=== PATIENT | female | born 1945 | race Caucasian/White ===

== ENCOUNTER 2017-01-06 10:12 | Observation (INO) | payer MEDICARE, MEDICAID ==
[~2017-01-06] VITALS: Ht 154.9 cm; Wt 107.5 kg
[~2017-01-06 10:12] MED LIST: ASPI-628 PO; BENEDRYL PO; CALC-721 PO; CREST10T PO; FRSM80T PO; GABA600T2 PO; HYDR-3740 PO; INSU100I18 SUBQ; LEVO75TA4 PO; LORA0.5T PO; METH750T3 PO; METO5TAB5 PO; MONT10TA20 PO; MULT-36 PO; PANT40TA2 PO; POTA-62 PO; SPIR25TA3 PO; VENL75TA87 PO; WARF10TA PO
[2017-01-06 10:19] VITALS: BP 117/50; PULSE 62; RESP 18; O2SAT 90
--- NOTE | 2017-01-06 10:22 | ED.REPORT ---
HPI-Abd Pain F 40 and Over Date of Service Jan 06, 2017 ED Provider: Dr. Enrike Aparicio MD A 71 year old female with a known abdominal hernia and a history of DVT, atrial fibrillation on Coumadin, chronic unduly catheter, PE, CAD, COPD and ovarian cancer s/p resection presents to the ED via EMS with intractable abdominal pain that began yesterday. The pain is exacerbated by laying down and has becoming progressively worse since onset. She rates her current pain as a 10/10 and reports that the pain radiates to her right flank. Associated symptoms include hematuria, diarrhea, nausea and flatulence. She also experienced insomnia last night secondary to pain. Patient denies any similar previous pain. Patient was given 4 mg of Dilaudid and 6mg of Tylenol with no relief. She was recently treated with Levaquin for pneumonia approx. 1 week ago. Patient denies fever, chills, hematochezia or vomiting. Nursing Notes Stated Complaint: ABDOMINAL PAIN Chief Complaint: Female Abdominal Pain Nursing Notes Reviewed: Yes (Stkr.it not reconciled - on warfarin) Allergies: Coded Allergies: latex (Verified Allergy, Severe, Rash, 01/06/17) cefaclor (Verified Allergy, Unknown, UNKNOWN, 01/06/17) oxycodone HCl (Verified Allergy, Unknown, UNKNOWN, 01/06/17) paroxetine (Verified Allergy, Unknown, UNKNOWN, 01/06/17) tetracycline (Verified Allergy, Unknown, UNKNOWN, 01/06/17) Cephalosporins (Unverified Adverse Reaction, Severe, NAUSEA, 01/06/17) codeine (Verified Adverse Reaction, Severe, GI UPSET, 01/06/17) morphine (Verified Adverse Reaction, Severe, Respiratory depression, ) enoxaparin sodium (Verified Adverse Reaction, Unknown, UNKNOWN, 01/06/17) Scheduled Allopurinol (Allopurinol) 100 Mg Tablet 100 MG PO TID Ascorbate Calcium (Vitamin C) 500 Mg Tablet 1,000 MG PO DAILY Aspirin (Aspirin) 81 Mg Tablet 81 MG PO DAILY Atorvastatin (Lipitor) 40 Mg Tablet 40 MG PO HS Beclomethasone Dipropionate (Qvar) 8.7 Gm Aer.w.adap 1 PUFF INHALATION BID Calcium Carbonate (Calcium Carbonate) 200 Mg Tab.chew 200 MG PO BID Calcium Carbonate/Vitamin D3 (Calcium 600 + Vit D 400 Softgl) 1 Each Capsule 1 EACH PO BID Cetirizine (Cetirizine) 5 Mg Tablet 10 MG PO DAILY Docusate Sodium (Docusate Sodium) 250 Mg Capsule 100 MG PO BID Furosemide (Furosemide) 80 Mg Tab 80 MG PO DAILY Gabapentin (Gabapentin) 600 Mg Tablet 600 MG PO TID Hydromorphone (Hydromorphone) 4 Mg Tablet 4 MG PO Q4H Levothyroxine (Levothyroxine) 75 Mcg Tablet 75 MCG PO DAILY Lutein (Lutein) 20 Mg Capsule 20 MG PO DAILY Montelukast (Singulair) 10 Mg Tablet 10 MG PO HS Multivitamin (Multivitamins) 1 Each Capsule 1 EACH PO DAILY Nicotine 14 mg/24 hr Patch (Nicotine 14 mg/24 hr Patch) 1 Each Patch.td24 1 PATCH TRANSDERM DAILY Omeprazole (Omeprazole) 20 Mg Capsule.dr 20 MG PO DAILY Potassium Chloride ER (Potassium Chloride ER) 20 Meq Tablet.er 40 MEQ PO DAILY Sennosides (Senna) 8.6 Mg Tablet 8.6 MG PO BID Spironolactone (Spironolactone) 25 Mg Tablet 50 MG PO DAILY Venlafaxine ER (Venlafaxine ER) 75 Mg Tab.er.24 75 MG PO DAILY Warfarin Sodium (Warfarin Sodium) 5 Mg Tablet 5 MG PO DAILY Scheduled PRN Acetaminophen (Acetaminophen) 500 Mg Tablet 500 MG PO Q6H PRN PRN For Fever Methocarbamol (Methocarbamol) 750 Mg Tablet 500 MG PO TID PRN PRN For Spasm Nitroglycerin SL (Nitroglycerin SL) 0.4 Mg Tab.subl 0.4 MG SL Q5MIN PRN PRN For Chest Pain Polyethylene Glycol 3350 (Miralax) 17 Gm Powd.pack 17 GM PO DAILY PRN PRN For Constipation Warfarin Sodium (Coumadin) 10 Mg Tablet 4 MG PO DAILY PRN PRN UD General Time Seen by MD: 10:21 Chief Complaint Abdominal pain Hx Obtained From: Patient Arrived By: Ambulance Sudden in Onset?: No Onset Occurred: Yesterday Symptom Duration: Since onset Progression since Onset: Gradually worsening Location: : Diffuse Quality: Painful Radiation: : Flank right Severity: Current: Pain level 10 out of 10 Severity: Maximum: Pain level 10 out of 10 Associated with: Reports: Diarrhea, Hematuria, Nausea, Denies: Chills, Fever, Hematochezia, Vomiting Pertinent Negative: Pt denies other symptoms Recent Healthcare: No recent hospitalization, Recent doctor visit Similar Sx Previous: No Risk Factors )( AAA Risk Stratification Risk factors reviewed Past Medical History Past Medical History Notes: IBC filter was removed. Past Medical History h/o DVT h/o PE Ovarian cancer Fibromyalgia Chronic femur fracture Chronic atrial fibirllation Chronicly anticouagulated Chornic unduly catheter in place Large ventral hernia Morbid Obesity Reports: Asthma, COPD, Coronary artery disease Past Surgical History [place] filter - 3-4 years ago Triple bypass 2003, a twisted wire was left and broke recently (removed) Hernia surgery x2 Ovarian cancer Reports: Cholecystectomy, Hysterectomy, Tonsillectomy Smoking History Current Every Day Smoker Social History Alcohol Use: Denies alcohol use Drug Use: Denies drug use Other Social History: Lives alone Ambulatory Status Cane Review of Systems + flatulence Constitutional: Denies: Chills, Fever GI: Reports: Abdominal pain, Diarrhea, Nausea, Denies: Hematochezia, Vomiting Female: Reports: Hematuria Complete sys rev & neg: except as marked. Physical Exam Vital Signs Vital Signs (First) Date Time Temp Pulse Resp B/P Pulse Ox O2 Delivery O2 Flow Rate FiO2 01/06/17 10:19 36.5 62 18 117/50 90 Room Air Initial VS: Reviewed, Unavailable (None on chart, ordered) Neck: Supple, Non-tender, Full range of motion Extremities: Vascular intact, Neuro intact, No swelling, No tenderness Skin: Warm, Dry, No cyanosis Neurologic: Alert, Oriented, Nonfocal Psychiatric: Mood/affect normal, Behavior normal, Normal thought content General/Constitutional: Awake, Alert, No acute distress Appearance / Presentation: Positive: Uncomfortable (No acute pain) Cardiovascular: Heart rate NL, Regular rhythm, Heart sounds NL Lower Ext Edema: Positive: Non-Pitting (Chronic edema of bilateral LE ) Abdomen: Atraumatic, Soft Tenderness/Guarding/Rebound: Positive: Tender diffuse Back: Atraumatic Chronic unduly catheter in place without signs of infection Head / Eyes: Atraumatic, Normocephalic, PERRL ENT: Atraumatic, Airway patent Mouth: Positive: Mucous membranes dry Skin: Atraumatic, Color NL, No rash, Warm, Dry, Intact Color / Condition: Positive: Skin turgor poor Interpretation & Diagnostics Lab Results Interpretation Result Diagram: 01/06/17 1025 01/06/17 1025 Test 01/06/17 10:25 01/06/17 11:45 White Blood Count 8.0th/mm3 (3.8-10.1) Red Blood Count 4.64mil/mm3 (3.90-5.20) Hemoglobin 14.1g/dL (12.0-15.6) Hematocrit 43.8% (35.0-46.0) Mean Corpuscular Volume 94.4fL (81-100) Mean Corpuscular Hemoglobin 30.4pg (27.0-35.0) Mean Corpuscular Hemoglobin Concent 32.2% (32.0-37.0) Red Cell Distribution Width 15.4% (12.3-15.4) Platelet Count 210bil/L (150-400) Neutrophils (%) (Auto) 72.1% (40-74) Lymphocytes (%) (Auto) 15.9% (14-46) Monocytes (%) (Auto) 8.2% (4-12) Eosinophils (%) (Auto) 3.5% (0-5) Basophils (%) (Auto) 0.2% (0-3) Prothrombin Time 19.4sec (8.1-12.5) Prothromb Time International Ratio 1.79ratio Sodium Level 140mEq/L (134-144) Potassium Level 3.8mEq/L (3.5-5.2) Chloride Level 98mEq/L (97-108) Carbon Dioxide Level 26mmol/L (18-29) Blood Urea Nitrogen 14mg/dL (8-27) Creatinine 0.61mg/dL (0.57-1.00) Estimat Glomerular Filtration Rate 139mL/min (>59) Glucose Level 135mg/dL (60-99) Calcium Level 9.0mg/dL (8.5-10.1) Magnesium Level 1.7mg/dL (1.6-2.6) Total Bilirubin 0.6mg/dL (0.0-1.2) Aspartate Amino Transf (AST/SGOT) 53U/L (0-50) Alanine Aminotransferase (ALT/SGPT) 46U/L (0-32) Alkaline Phosphatase 125U/L (25-165) Total Protein 6.5g/dL (6.4-8.4) Albumin 3.3g/dL (3.4-5.0) Lipase 13U/L (13-60) Urine Color Straw (YELLOW) Urine Appearance Hazy (CLEAR,HAZY) Urine pH 6.5 (5.0-8.0) Urine Specific [place] 1.005 (1.003-1.035) Urine Protein Negativemg/dL (NEG,TRACE) Urine Glucose (UA) Negativemg/dL (NEGATIVE) Urine Ketones Negativemg/dL (NEGATIVE) Urine Occult Blood Large (NEGATIVE) Urine Nitrite Positive (NEGATIVE) Urine Bilirubin Negative (NEGATIVE) Urine Urobilinogen Normalmg/dL (NORMAL) Urine Leukocyte Esterase Small (NEGATIVE) Urine RBC 11-50/hpf (0-2) Urine WBC 6-10/hpf (0-5) Urine Epithelial Cells None/hpf (NONE-MOD) Urine Crystals None seen (NONE SEEN) Urine Bacteria Few/hpf (NONE-FEW) Urine Hyaline Casts None/lpf (NONE) Urine Granular Casts None seen (NONE SEEN) Urine Waxy Casts None seen (NONE SEEN) Urine Red Blood Cell Casts None seen (NONE SEEN) Urine White Blood Cell Casts None seen (NONE SEEN) Urine Mucus None seen (None Seen) Urine Trichomonas None seen (NONE SEEN) Urine Yeast None (NONE SEEN) Urinalysis Comment None Urine Culture Reflexed Indicated Lab Results Interpretation: CBC normal CMP normal INR subtherapeutic Stool PCR pending ECG Interpretation ECG Interpretation: Sinus rhythm Rate 72 bpm Nonspecific T wave changes present anteriorly No acute ischemic changes Time: 10:52 Interpreted by: ED physician X-Ray Chest Interpretation Chest Xray Interpretation: IMPRESSION: Acute disease is not seen any semiupright portable chest. Cause of cough is not identified. Dictated by: Feliz Dougherty M.D. on 01/06/2017 at 10:58 Interpretation / Wet Read by: Interpret - Radiologist CT Abd / Pelvis Interpretation IMPRESSION: 1. Very prominent diastases rectus versus huge ventral hernia that involves the descending transverse and majority of the ascending colon, majority of small bowel and mesentery, most of the pancreas 2. 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 3. Inferior vena cava filter unchanged since previous study in the more peripheral aspect of the inferior vena cava just above the common iliac veins. Previous cholecystectomy. Dictated by: Feliz Dougherty M.D. on 01/06/2017 at 11:50 Study type: Abdominal CT IV contrast, Abdom CT oral contrast Interpretation / Wet Read by: Interpret - Radiologist Re-Eval/Medical Decision Med Decision/Clinical Course This is a 71-year-old female with a complex past medical history as full code presents from [facility] with complaint of severe diarrhea and abdominal cramping symptoms started yesterday. Patient just recently completed a course of levofloxacin for possible pneumonia at the end of November. We will risk factors for possible C. difficile. Also has morbid obesity, has chronic atrial fibrillation and his antiplatelet warfarin. She has apparently had a distant history of DVT/PE and has an IVC filter in place as well. On exam she has normal vitals, but appears uncomfortable, appears dehydrated with dry mucous membranes,'s poor skin turgor. Morbidly obese abdomen with a large ventral hernia, no evidence of incarceration. IV was placed, lab work was normal. CT abdomen and pelvis reveals a large ventral hernia, but no acute surgical or acute process identified. No overt colitis is identified, but the patient multiple stools, required titrated doses of Dilaudid, and his complex medical patient-therefore discussed options in terms of admission versus back to [facility], the patient requested admission. She will be admitted observation status. Stool studies are still pending, but the patient has enough risk factors that appear treated with metronidazole was initiated. The patient is markedly subtherapeutic and INR. Case is discussed with the hospitalist Dr. Forde Source of Hx: Old records Re-Evaluation/Progress #1: Time of Eval: 13:03 Patient Status: Condition improved, Pain improved Re-Evaluation/Progress Note: Pain is now a She is informed of her current and pending results. Concerns about C. Diff are discussed. Re-Evaluation/Progress #2: Time of Eval: 13:31 Patient Status: Condition improved, Pain improved Re-Evaluation/Progress Note: Patient is rechecked. Symptoms have improved upon re-eval. All questions about the intended treatment plan are addressed. She is offerred admission and would feel more comfortable in the hospital. Patient understands and agrees with the plan. Consultation : Referral / Consult Name: Hermelindo Gorman Consulted With: Hospitalist Call Returned at: 13:36 Lens Generating Machine Tender: Will see patient, Agrees with eval, Agrees with plan, Accepts admit Note: Discussed patient condition. Agrees to accept the patient. Differential Diagnosis: Positive: Acute abdominal pain, C. diff colitis, Negative: Appendicitis, Cholangitis, Ectopic , Esophageal rupture, Gun shot wound abdomen, Myocardial infarction, Peritonitis, Sexually transmit disease, Stab wound abdomen Counseled Regarding: Diagnosis, Lab results, Need for admission Discharge & Departure Primary Impression: Clostridium difficile diarrhea Additional Impressions: Subtherapeutic international normalized ratio (INR) Abdominal pain Abdominal location: generalized Qualified Code: R10.84 - Generalized abdominal pain Disposition: ADMITTED TO HOSPITAL Discharge Condition All VS Reviewed: Yes Condition: Improved Referrals: Santi Blair DO (PCP) Scribe Attestation Portions of this note were transcribed by Jessica Chase. I, Dr. Aparicio, personally performed the history, physical exam and medical decision-making; I reviewed and confirmed the accuracy of the information in the transcribed note. Signed by: Jessica Chase, 01/06/17. copies to: Santi Blair Matthew F MD Jan 06, 2017 10:22 JESSICA CHASE Jan 06, 2017 10:30
[2017-01-06] MEDS ORDERED: Ondansetron 2 mg/mL 2 mL Inj IVPUSH ONE (10:35)
[2017-01-06] MEDS ORDERED: 0.9% Sodium Chloride 1,000 ML IV ONE (10:35)
[2017-01-06 10:50] LABS: BASOPHILS % (AUTO) 0.2 % (0-3); EOSINOPHILS % (AUTO) 3.5 % (0-5); MONOCYTES % (AUTO) 8.2 % (4-12); Mean Corpuscular Hemoglobin 30.4 pg (27.0-35.0); Mean Corpuscular Volume 94.4 fL (81-100); NEUTROPHILS % (AUTO) 72.1 % (40-74); Platelet Count 210 bil/L (150-400)
[2017-01-06 10:51] LABS: INR 1.79 ratio
[2017-01-06 10:58] LABS: Magnesium 1.7 mg/dL (1.6-2.6)
--- NOTE | 2017-01-06 11:01 | DRSVH ---
PROCEDURE: X-RAY CHEST ONE VIEW, PORTABLE ([id number]) INDICATIONS: cough TECHNIQUE: One view of the chest was acquired. COMPARISON: None. FINDINGS: Surgical changes and devices: Sternotomy wires are present. Lungs and pleura: No pleural effusions or pneumothorax. Lungs are clear. Pulmonary vasculature is normal. Mediastinum: Mediastinal contours appear normal. Heart size is normal. Bones and chest wall: No suspicious bony lesions. Overlying soft tissues appear unremarkable. IMPRESSION: Acute disease is not seen any semiupright portable chest. Cause of cough is not identifie d. Dictated by: Feliz Dougherty M.D. on 01/06/2017 at 10:58 Approved by: Feliz Dougherty M.D. on 01/06/2017 at 10:59
[2017-01-06] MEDS: HYDROmorphone 0.5 mg/0.5 mL iSecure Syringe IVPUSH PRN ×2 (11:12→13:48)
--- NOTE | 2017-01-06 12:06 | DRSVH ---
PROCEDURE: CT ABDOMEN AND PELVIS WITH CONTRAST ([id number]) INDICATIONS: ABd Pain TECHNIQUE: After the administration of intravenous contrast, 5 mm thick sections acquired from the diaphragm to the symphysis. 5 mm coronal and sagittal reformats were acquired. For radiation dose reduction, the following was used: automated exposure control, adjustment of mA and/or kV according to patient siz e. COMPARISON: [facility] , CT, ABD/PELVIS W/CON ([facility]), 04/20/2010, 16:00. FINDINGS: Image quality: Good. ABDOMEN: Lung bases: Lung bases show some streaky disease probably subsegmental atelectasis at the left lung base.. Heart size is normal. Solid organs: Liver and spleen are normal in size and enhancement. Gallbladder has been removed. B iliary system is non dilated. Pancreas enhances normally. No adrenal nodules. Kidneys demonstrate normal size and enhancement, without hydronephrosis. Peritoneum and bowel: Bowel loops demonstrate normal wall thickness and caliber. No free fluid or a ir. The aorta is atherosclerotic. There is likely significant stenosis of the superior mesenteric ar derick Nodes and vessels: No retroperitoneal or mesenteric adenopathy by size criteria. Aorta and inferior vena cava are normal in size. An IVC filter is present in the inferior vena cava just above the comm on iliac vein junction. Miscellaneous: There is a very prominent diastases rectus are huge ventral hernia occurring in the mi dportion of the liver stomach colon and small bowel. In addition involved as they pancreas and a good portion of the mesentery in vasculature. PELVIS: Genitourinary: Bladder is collapsed because of a [place] catheter in it for drainage. Miscellaneous: No inguinal hernias or adenopathy. Bones: Prominent degenerative disc disease is present in the lumbar spine. There is a mild to moderat e rotoscoliosis convex to the left in the upper lumbar spine No vertebral body compression fractures are identified.. IMPRESSION: 1. Very prominent diastases rectus versus huge ventral hernia that involves the descending transverse and majority of the ascending colon, majority of small bowel and mesentery, most of the pancreas 2. 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 3. Inferior vena cava filter unchanged since previous study in the more peripheral aspect of the infe rior vena cava just above the common iliac veins. Previous cholecystectomy. Dictated by: Feliz oDugherty M.D. on 01/06/2017 at 11:50 Approved by: Feliz Dougherty M.D. on 01/06/2017 at 12:04
[2017-01-06 12:18] LABS: APPEARANCE,URINE HAZY (CLEAR,HAZY); COLOR,URINE STRAW (YELLOW); OCCULT BLOOD,URINE LARGE (NEGATIVE); PH,URINE 6.5 (5.0-8.0); UROBILINOGEN,URINE NORMAL (NORMAL)
[2017-01-06] MEDS ORDERED: metroNIDAZOLE Inj 1,000 MG in IV Premix 1 EACH IV ONE (13:10)
[2017-01-06] MEDS ORDERED: WARF5TAB7 PO (13:39)
[2017-01-06] MEDS ORDERED: SENN-133 PO (13:41)
[2017-01-06] MEDS ORDERED: CALC500T53 PO (13:42)
[2017-01-06] MEDS ORDERED: DOCU250C2 PO (13:43)
[2017-01-06] MEDS ORDERED: BECL8.7A6 INHALATION (13:44)
[2017-01-06] MEDS ORDERED: ASCO-294 PO (13:45)
[2017-01-06] MEDS ORDERED: MULT1CAP33 PO (13:46)
[2017-01-06] MEDS ORDERED: CETI5TAB28 PO (13:48)
[2017-01-06] MEDS ORDERED: ASPI-973 PO (13:49)
[2017-01-06] MEDS ORDERED: OMEP20CA11 PO (13:49)
[2017-01-06] MEDS ORDERED: ZYL100 PO (13:50)
[2017-01-06] MEDS ORDERED: CALC1CAP22 PO (13:51)
[2017-01-06] MEDS ORDERED: NICO1PAT5 TRANSDERM (13:52)
[2017-01-06] MEDS ORDERED: LIP40 PO (13:52)
[2017-01-06] MEDS ORDERED: HYDR4TAB PO (13:53)
[2017-01-06] MEDS ORDERED: LUTE20CA8 PO (13:54)
[2017-01-06] MEDS ORDERED: ACET-171 PO (13:54)
[2017-01-06] MEDS ORDERED: Alum-Mag Hydrox-Simeth 30 mL Suspension PO PRN (13:55)
[2017-01-06] MEDS ORDERED: Polyethylene Glycol (PEG) 17 Gm Powder PO PRN (13:55)
[2017-01-06] MEDS ORDERED: Ondansetron 2 mg/mL 2 mL Inj IVPUSH PRN (13:55)
[2017-01-06] MEDS ORDERED: POLY17PO6 PO (13:56)
[2017-01-06] MEDS ORDERED: NITR0.4T38 SL (13:56)
[2017-01-06 14:00] VITALS: BP 119/48; PULSE 62
--- NOTE | 2017-01-06 14:54 | PCM.HPMED ---
Subjective Date of Service Jan 06, 2017 Primary Provider: Admitting Physician: Hermelindo Gomran Primary Care Physician: Santi Blair DO Attending Physician: Hermelindo Gorman Admit Status: From the Emergency Department, Admit to Red Team Chief Complaint: Abdominal pain with diarrhea History of Present Illness: Ms. Corral is a 71-year-old female with past medical history of current abdominal hernia, DVT/PE, atrial fibrillation on Coumadin, chronic indwelling catheter, CAD, COPD and ovarian cancer status post resection presented to the ED today secondary to intractable 10/10 abdominal pain with diarrhea 1 day. Patient states that she has recently been given antibiotic Levaquin for pneumonia approximately one week ago, had been feeling okay up until last night when she developed abdominal pain in her left and right lower quadrants with diarrhea and excessive flatulence throughout most of the night, she reports no blood in her diarrhea. This was accompanied with nausea without vomiting. She states the pain is 10/10 and radiating to her right flank and this pain will increase when laying down or when palpated, though she is able to sit up during interview and able to eat a double cheeseburger in ER room and was somewhat upset that it had no mayonnaise. Denies recent dietary change, or other sick contacts with similar symptoms. She states that she is also had some hematuria with clots which is not a altogether new symptom for her. She also states a mild nonproductive cough. She denies chest pain, headache, visual changes, shortness of breath or numbness or tingling in her extremities. She does state that she has bilateral buttock ulcers and a wound under her hernia/pannus which has been evaluated by wound care from the [facility] halfway facility just prior to transportation to the ED. In the ED chest x-ray was clear, CT confirms very prominent diastasis rectus versus huge ventral hernia involving the descending transverse and majority of the descending colon, majority of small bowel mesentery and most of the pancreas. No obstruction or ischemic changes are identified at the origin of this. Mesenteric artery. Lab values unremarkable with the exception of mildly elevated liver enzymes and hyperglycemia. INR 1.79. Urine showed small leuk esterase, 6-10 WBC, positive nitrates, large occult blood, Culture pending. White count 8.0, temperature 36.5, pulse rate 62 respiratory rate 18 blood pressure 119/48. Dilaudid given in the ED with affect. Flagyl started. Review of Systems: A comprehensive review of systems was conducted with the patient and found to be negative except as above in the history of present illness. Allergies Coded Allergies: latex (Verified Allergy, Severe, Rash, 01/06/17) cefaclor (Verified Allergy, Unknown, UNKNOWN, 01/06/17) oxycodone HCl (Verified Allergy, Unknown, UNKNOWN, 01/06/17) paroxetine (Verified Allergy, Unknown, UNKNOWN, 01/06/17) tetracycline (Verified Allergy, Unknown, UNKNOWN, 01/06/17) Cephalosporins (Unverified Adverse Reaction, Severe, NAUSEA, 01/06/17) codeine (Verified Adverse Reaction, Severe, GI UPSET, 01/06/17) morphine (Verified Adverse Reaction, Severe, Respiratory depression, ) enoxaparin sodium (Verified Adverse Reaction, Unknown, UNKNOWN, 01/06/17) Home Medications Scheduled Allopurinol (Allopurinol) 100 Mg Tablet 100 MG PO TID Ascorbate Calcium (Vitamin C) 500 Mg Tablet 1,000 MG PO DAILY Aspirin (Aspirin) 81 Mg Tablet 81 MG PO DAILY Atorvastatin (Lipitor) 40 Mg Tablet 40 MG PO HS Beclomethasone Dipropionate (Qvar) 8.7 Gm Aer.w.adap 1 PUFF INHALATION BID Calcium Carbonate (Calcium Carbonate) 200 Mg Tab.chew 200 MG PO BID Calcium Carbonate/Vitamin D3 (Calcium 600 + Vit D 400 Softgl) 1 Each Capsule 1 EACH PO BID Cetirizine (Cetirizine) 5 Mg Tablet 10 MG PO DAILY Docusate Sodium (Docusate Sodium) 250 Mg Capsule 100 MG PO BID Furosemide (Furosemide) 80 Mg Tab 80 MG PO DAILY Gabapentin (Gabapentin) 600 Mg Tablet 600 MG PO TID Hydromorphone (Hydromorphone) 4 Mg Tablet 4 MG PO Q4H Levothyroxine (Levothyroxine) 75 Mcg Tablet 75 MCG PO DAILY Lutein (Lutein) 20 Mg Capsule 20 MG PO DAILY Montelukast (Singulair) 10 Mg Tablet 10 MG PO HS Multivitamin (Multivitamins) 1 Each Capsule 1 EACH PO DAILY Nicotine 14 mg/24 hr Patch (Nicotine 14 mg/24 hr Patch) 1 Each Patch.td24 1 PATCH TRANSDERM DAILY Omeprazole (Omeprazole) 20 Mg Capsule.dr 20 MG PO DAILY Potassium Chloride ER (Potassium Chloride ER) 20 Meq Tablet.er 40 MEQ PO DAILY Sennosides (Senna) 8.6 Mg Tablet 8.6 MG PO BID Spironolactone (Spironolactone) 25 Mg Tablet 50 MG PO DAILY Venlafaxine ER (Venlafaxine ER) 75 Mg Tab.er.24 75 MG PO DAILY Warfarin Sodium (Warfarin Sodium) 5 Mg Tablet 5 MG PO DAILY Scheduled PRN Acetaminophen (Acetaminophen) 500 Mg Tablet 500 MG PO Q6H PRN PRN For Fever Methocarbamol (Methocarbamol) 750 Mg Tablet 500 MG PO TID PRN PRN For Spasm Nitroglycerin SL (Nitroglycerin SL) 0.4 Mg Tab.subl 0.4 MG SL Q5MIN PRN PRN For Chest Pain Polyethylene Glycol 3350 (Miralax) 17 Gm Powd.pack 17 GM PO DAILY PRN PRN For Constipation Warfarin Sodium (Coumadin) 10 Mg Tablet 4 MG PO DAILY PRN PRN UD Exam Vital Signs & I/O Vital Sign- Last 8 Hours Date Time Temp Pulse Resp B/P Pulse Ox O2 Delivery O2 Flow Rate FiO2 01/06/17 15:29 37.0 65 16 100/58 90 Room Air 01/06/17 14:00 62 119/48 01/06/17 10:19 36.5 62 18 117/50 90 Room Air Lab & Micro Results Laboratory Tests Test 01/06/17 10:25 01/06/17 11:45 01/06/17 15:51 01/06/17 16:34 White Blood Count 8.0th/mm3 (3.8-10.1) Red Blood Count 4.64mil/mm3 (3.90-5.20) Hemoglobin 14.1g/dL (12.0-15.6) Hematocrit 43.8% (35.0-46.0) Mean Corpuscular Volume 94.4fL (81-100) Mean Corpuscular Hemoglobin 30.4pg (27.0-35.0) Mean Corpuscular Hemoglobin Concent 32.2% (32.0-37.0) Red Cell Distribution Width 15.4% (12.3-15.4) Platelet Count 210bil/L (150-400) Neutrophils (%) (Auto) 72.1% (40-74) Lymphocytes (%) (Auto) 15.9% (14-46) Monocytes (%) (Auto) 8.2% (4-12) Eosinophils (%) (Auto) 3.5% (0-5) Basophils (%) (Auto) 0.2% (0-3) Prothrombin Time 19.4sec (8.1-12.5) Prothromb Time International Ratio 1.79ratio Sodium Level 140mEq/L (134-144) Potassium Level 3.8mEq/L (3.5-5.2) Chloride Level 98mEq/L (97-108) Carbon Dioxide Level 26mmol/L (18-29) Blood Urea Nitrogen 14mg/dL (8-27) Creatinine 0.61mg/dL (0.57-1.00) Estimat Glomerular Filtration Rate 139mL/min (>59) Glucose Level 135mg/dL (60-99) Calcium Level 9.0mg/dL (8.5-10.1) Magnesium Level 1.7mg/dL (1.6-2.6) Total Bilirubin 0.6mg/dL (0.0-1.2) Aspartate Amino Transf (AST/SGOT) 53U/L (0-50) Alanine Aminotransferase (ALT/SGPT) 46U/L (0-32) Alkaline Phosphatase 125U/L (25-165) C-Reactive Protein 1.6mg/dL (0.0-0.5) Total Protein 6.5g/dL (6.4-8.4) Albumin 3.3g/dL (3.4-5.0) Lipase 13U/L (13-60) Procalcitonin 0.17ng/mL (0.00-0.08) Thyroid Stimulating Hormone (TSH) 5.220uIU/mL (0.450-4.500) Urine Color Straw (YELLOW) Urine Appearance Hazy (CLEAR,HAZY) Urine pH 6.5 (5.0-8.0) Urine Specific [place] 1.005 (1.003-1.035) Urine Protein Negativemg/dL (NEG,TRACE) Urine Glucose (UA) Negativemg/dL (NEGATIVE) Urine Ketones Negativemg/dL (NEGATIVE) Urine Occult Blood Large (NEGATIVE) Urine Nitrite Positive (NEGATIVE) Urine Bilirubin Negative (NEGATIVE) Urine Urobilinogen Normalmg/dL (NORMAL) Urine Leukocyte Esterase Small (NEGATIVE) Urine RBC 11-50/hpf (0-2) Urine WBC 6-10/hpf (0-5) Urine Epithelial Cells None/hpf (NONE-MOD) Urine Crystals None seen (NONE SEEN) Urine Bacteria Few/hpf (NONE-FEW) Urine Hyaline Casts None/lpf (NONE) Urine Granular Casts None seen (NONE SEEN) Urine Waxy Casts None seen (NONE SEEN) Urine Red Blood Cell Casts None seen (NONE SEEN) Urine White Blood Cell Casts None seen (NONE SEEN) Urine Mucus None seen (None Seen) Urine Trichomonas None seen (NONE SEEN) Urine Yeast None (NONE SEEN) Urinalysis Comment None Urine Culture Reflexed Indicated Lactic Acid Level 1.5mmol/L (0.4-2.0) Microbiology 01/06/17 C. difficile DNA Amplification, Ordered Pending 01/06/17 Urine Culture, Received Pending Result Diagram: 01/06/17 1025 01/06/17 1025 Review of Systems: Constitutional: Negative, except as otherwise mentioned in the history above. Ophthalmologic: Negative, except as otherwise mentioned in the history above. Cardiovascular: Negative, except as otherwise mentioned in the history above. Respiratory: Negative, except as otherwise mentioned in the history above. Gastrointestinal: Negative, except as otherwise mentioned in the history above. Genitourinary: Negative, except as otherwise mentioned in the history above. Musculoskeletal: Negative, except as otherwise mentioned in the history above. Neurological: Negative, except as otherwise mentioned in the history above. Psychiatric: Negative, except as otherwise mentioned in the history above. Hematologic/Lymphatic: Negative, except as otherwise mentioned in the history above. Allergic/Immunologic: Negative, except as otherwise mentioned in the history above. PMH h/o DVT h/o PE Ovarian cancer Fibromyalgia Chronic femur fracture Chronic atrial fibirllation Chronicly anticouagulated Chornic unduly catheter in place Large ventral hernia Morbid Obesity Reports: Asthma, COPD, Coronary artery disease Surgical History [place] filter - 3-4 years ago Triple bypass 2003, a twisted wire was left and broke recently (removed) Hernia surgery x2 Ovarian cancer Reports: Cholecystectomy, Hysterectomy, Tonsillectomy Family History Mother and brother both from bowel infections Father and grandmother from [place] Great aunt had bilateral mastectomy secondary to breast cancer Social History Hx Alcohol Use: No Hx Substance Use: No Hx Tobacco Use: Yes (2 day. Smoke since age 18) Smoking Status: Current Every Day Smoker Living [facility] Exam Vital Signs Vital Sign - Last Date Time Temp Pulse Resp B/P Pulse Ox O2 Delivery O2 Flow Rate FiO2 01/06/17 14:00 62 119/48 01/06/17 10:19 36.5 18 90 Room Air Exam General: Morbidly obese female awake and alert sitting up in hospital bed in no acute distress, eating double cheeseburger. Appropriately interactive HEENT: Normocephalic, atraumatic. External ears without defect. Pupils equal, round, and reactive to light and accommodation. Ecchymosis over bridge of nose. Neck: Supple with full range of motion. No jugular venous distension, though difficult to appreciate secondary to body habitus Cardiovascular: Regular rate and rhythm with no murmurs Pulmonary: Clear to auscultation bilaterally with no crackles, wheezes, or rhonchi. Normal respiratory effort with no use of accessory muscles. Abdomen: Soft, mildly tender to palpation left and right lower quadrant. Obese with ventral hernia. Extremities: Lower extremity venous stasis with edema to pretibial area. Skin: Normal temperature, poor turgor Neurological: Cranial nerves grossly intact. Psychiatric: Normal mood and affect. Alert and oriented to person, place, and time. Lab and Diagnostics Result Diagram: 01/06/17 1025 01/06/17 1025 X-Rays, CTs and MRIs . X-RAY CHEST ONE VIEW, PORTABLE IMPRESSION: Acute disease is not seen any semiupright portable chest. Cause of cough is not identified. Dictated by: Feliz Dougherty M.D. on 01/06/2017 CT ABDOMEN AND PELVIS WITH CONTRAST IMPRESSION: 1. Very prominent diastases rectus versus huge ventral hernia that involves the descending transverse and majority of the ascending colon, majority of small bowel and mesentery, most of the pancreas 2. 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 3. Inferior vena cava filter unchanged since previous study in the more peripheral aspect of the inferior vena cava just above the common iliac veins. Previous cholecystectomy. Dictated by: Feliz Dougherty M.D. on 01/06/2017 12-lead ECG EKG showed sinus rhythm with atrial premature complex. Assessment & Plan Ms. Corral is a 71-year-old female with past medical history of current abdominal hernia, DVT/PE, atrial fibrillation on Coumadin, chronic indwelling catheter, CAD, COPD and ovarian cancer status post resection admitted to observation secondary to intractable 10/10 abdominal pain with diarrhea 1 day with concern of C. difficile Possible acute Gastroenteritis and C. Difficile diarrhea. Present on admission. Ongoing Recent antibiotic course raises concern for C. difficile Afebrile with no white count Stool PCR pending IV fluids Metronidazole 1 g IV given in ED Continue oral Flagyl 500 mg 3 times a day Continue to monitor Check urine legionella as well given recent pneumonia and ongoing GI symptoms Chronic atrial fibrillation with chronic anticoagulation with Warfarin. Present on admission - Subtherapeutic INR on admission Continue Warfarin. Pharmacy to dose Followup repeat INR in the morning Coronary artery disease. Present on admission Continue home statin Nitroglycerin when necessary COPD/asthma. Present on admission. Stable. Continue home Qvar Continue home Montelukast Hypertension. Not present on admission. Presumed stable Continue home furosemide, spironolactone, first dose tomorrow 01/07/2017 if hemodynamic state allows Fibromyalgia. Present on admission. Stable. Continue home gabapentin Continue home hydromorphone Continue home methocarbamol Hypothyroidism. Present on admission. Presumed stable. Continue home levothyroxine Tobacco dependence. Present on admission Nicotine patch GERD. Present on admission. Stable. Famotidine, twice a day Depression. Present on admission. Stable. Continue home venlafaxine Gout. Present on admission. Stable Continue home allopurinol Disposition: Patient admitted to observational status pending appropriate cultures and serologies. Pain Evaluation: Adequate Pain Control GI Prophylaxis: H2 lalita VTE Prophylaxis: Theraputic Anticoag with Warfarin (INR 1.79 on admit), SCDs Resuscitation Status: CPR: Attempt Resuscitation Attending Statement The patient was seen and examined together with Dr. LOPEZ on 01/06/17 and I agree with the history, exam and plan as outlined in the note above. KELL LOPEZ DO Jan 06, 2017 14:54 Hermelindo Gorman Jan 06, 2017 17:34
[2017-01-06] MEDS ORDERED: HYDROMORPHONE 4 MG PO SCH (15:20)
[2017-01-06 15:29] VITALS: BP 100/58; PULSE 65; RESP 16; O2SAT 90
[2017-01-06] MEDS: 0.9% Sodium Chloride 1,000 ML IV SCH ×2 (15:44→23:55)
--- NOTE | 2017-01-06 16:26 | PCM.CONPHA ---
Subjective Requesting Provider: KELL LOPEZ DO Abdominal pain with diarrhea Reason for Pharmacy Consult: Anticoagulation Management Assessment/Plan Assessment/Plan Warfarin per pharmacy for patient admitted with abdominal pain/diarrhea, who has a history of A-Fib and DVT/PE, with a goal INR of 2-3: The patient's home warfarin dose has been sometimes 5mg and sometimes 4mg, and was most recently held, hence today's INR of 1.79. There are multiple drug interactions including metronidazole (new) and stable interactions with aspirin , allopurinol and venlafaxine, which are home meds. Today's labs: INR 1.79 HCT 43.8 PLT 210 I will order warfarin 5mg today, and the pharmacy will follow INRs daily and dose accordingly. Mabel Marie [facility] Jan 06, 2017 16:26
--- NOTE | 2017-01-06 17:11 | PCM.ADCARE ---
Advance Care Planning Note Purpose of Encounter: discussing goals of care given multiple medical issues including CAD, hernia, and need for anticoagulation Parties in Attendance: Patient Decisional Capacity: Decisional Subjective: Continued abdominal pain although better than earlier Objective: Abdomen: Soft, ND, +BS, tender Lungs:CTA bilat Goals of Care Determinations: After recovering from this acute episode of GI issues and hospitalization she hopes to be able to progress enough with her physical therapy at SNF in order to be able to return back to her trailer where she used to live alone. She has been at SNF since April due to left ankle fracture Plan: Continue with current care including rule out C. Diff and supportive care for her abdominal pain and diarrhea with goal of returning back to SNF after this hospitalization CODE STATUS: Full code Time Spent Adv.Care Plannin min Hermelindo Gorman Jan 06, 2017 17:11
[2017-01-06 18:19] VITALS: BP 119/74; PULSE 57; RESP 16; O2SAT 93
[2017-01-06 20:00] VITALS: BP 103/62; PULSE 59; RESP 17; O2SAT 94
[2017-01-06] MEDS: Fluticasone 100 mCg Inhaler INHALATION SCH (20:24)
[2017-01-06] MEDS ORDERED: diphenhydrAMINE-Zinc 2%-0.1% 30 Gm Cream TOPICAL PRN (21:05)
[2017-01-07 00:15] VITALS: BP 107/65; PULSE 57; RESP 16; O2SAT 93
[2017-01-07 06:45] LABS: BASOPHILS % (AUTO) 0.3 % (0-3); EOSINOPHILS % (AUTO) 5.1 % (0-5); Mean Corpuscular Volume 94.8 fL (81-100); Platelet Count 201 bil/L (150-400)
[2017-01-07 07:12] LABS: Magnesium 1.7 mg/dL (1.6-2.6)
[2017-01-07 07:17] LABS: INR 1.91 ratio
[2017-01-07] MEDS ORDERED: VENLAFAXINE 75 MG PO SCH (08:30)
[2017-01-07] MEDS: Fluticasone 100 mCg Inhaler INHALATION SCH ×2 (08:44→20:26)
[2017-01-07] MEDS: Venlafaxine XR 75 mg ER24 Capsule PO SCH (08:47)
--- NOTE | 2017-01-07 11:02 | PCM.PNMED ---
Subjective Date of Service Jan 07, 2017 Subjective Still having diffuse abdominal pain although says seems a little better than yesterday. Denies any other new issues/complaints Exam Vital Signs Vital Sign - Last Date Time Temp Pulse Resp B/P Pulse Ox O2 Delivery O2 Flow Rate FiO2 01/07/17 00:15 36.6 57 16 107/65 93 Nasal Cannula 1.00 Intake and Output 01/06/17 01/06/17 01/07/17 Cumulative From/Thru 15:00 23:00 07:00 01/06/17 10:19 - 01/06/17 18:13 Intake Total 1000 ml 457 ml 1457 ml Output Total 1700 ml 1700 ml Balance 1000 ml -1243 ml -243 ml Intake Oral 360 ml 360 ml IV Total 1000 ml 97 ml 1097 ml Output Urine Total 1700 ml 1700 ml General: Alert, Cooperative, No Acute Distress Head: Normal Eyes: Scleral Anicteric Nose: Mucous Membr Moist/[place] Mouth: Mucous Membr Moist/[place] Neck: Supple Chest & Lungs: Chest Wall Normal Cardiovascular: Regular Rate/Rhythm Pulses: NL carotid, radial, femoral, DP, PT Abdomen: Tender, Non-distended, Normoactive bowel tones, Soft Genitialial: Normal (Cheema cath in place) Extremities: No cyanosis/clubbing/edma bilat Neurological: Grossly Neurologically Intact, Normal Speech Additional Information: Psych: Calm, appropriate IVs and Medications Medications Reviewed: Medications were reviewed in detail Lab and Diagnostics Result Diagram: 01/07/1760201/07/17 0603 X-Rays, CTs and MRIs . X-RAY CHEST ONE VIEW, PORTABLE IMPRESSION: Acute disease is not seen any semiupright portable chest. Cause of cough is not identified. Dictated by: Feliz Dougherty M.D. on 01/06/2017 CT ABDOMEN AND PELVIS WITH CONTRAST IMPRESSION: 1. Very prominent diastases rectus versus huge ventral hernia that involves the descending transverse and majority of the ascending colon, majority of small bowel and mesentery, most of the pancreas 2. 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 3. Inferior vena cava filter unchanged since previous study in the more peripheral aspect of the inferior vena cava just above the common iliac veins. Previous cholecystectomy. Dictated by: Feliz Dougherty M.D. on 01/06/2017 12-lead ECG EKG showed sinus rhythm with atrial premature complex. Assessment & Plan 71-year-old female with past medical history of abdominal hernia, DVT/PE, atrial fibrillation on Coumadin, chronic indwelling catheter (since breaking her leg in Apr 2016 for skin protection), CAD, COPD and ovarian cancer status post resection presented with intractable 10/10 abdominal pain with diarrhea 1 day with concern of C. difficile # Acute abdominal pain. Present on admission. Ongoing - Unclear etiology. ? if related to large ventral hernia vs other - GI consulted today. Will followup with recs - continue with supportive care including IV Dilaudid prn # Acute UTI, present on admission. - Likely due to indwelling Cheema cath which was last changed 2 days prior to admission - Hold off on further Abx and followup final urine culture before initiating Abx # Acute diarrhea suspicious for acute gastroenteritis vs C. Difficile diarrhea. Present on admission. Improved to more formed stool now - Stool PCR is negative - Followup urine legionella given recent pneumonia and ongoing GI symptoms - Continue with supportive care # Chronic atrial fibrillation with chronic anticoagulation with Warfarin. Present on admission - Subtherapeutic INR on admission - Continue Warfarin. Pharmacy to dose - Followup repeat INR in the morning # Coronary artery disease. Present on admission - Continue home statin - Nitroglycerin when necessary # COPD/asthma. Present on admission. Stable. - Continue home Qvar 0 Continue home Montelukast # Hypertension. Not present on admission. Presumed stable - Continue home furosemide, spironolactone # Fibromyalgia. Present on admission. Stable. - Continue home gabapentin - Continue home hydromorphone - Continue home methocarbamol # Hypothyroidism. Present on admission. - Continue home levothyroxine - TSH elevated could be acute reactive to presenting stress - Repeat full panel in a day or two # Tobacco dependence. Present on admission - Nicotine patch # GERD. Present on admission. Stable. - Famotidine, twice a day # Depression. Present on admission. Stable. - Continue home venlafaxine # Gout. Present on admission. Stable - Continue home allopurinol Disposition: Likely back to SNF in 1-2 days GI Prophylaxis: H2 lalita VTE Prophylaxis: Theraputic Anticoag with Warfarin (INR 1.79 on admit), SCDs Resuscitation Status: CPR: Attempt Resuscitation Hermelindo Gorman Jan 07, 2017 11:02
[2017-01-07 11:33] VITALS: BP 109/66; PULSE 85; RESP 18; O2SAT 93
[2017-01-07] MEDS ORDERED: Nystatin 100,000 Unit/Gm 15 Gm Powder TOPICAL PRN (14:15)
--- NOTE | 2017-01-07 14:59 | PCM.CONPHA ---
Subjective Abdominal pain with diarrhea Objective Vital Signs Date Time Temp Pulse Resp B/P Pulse Ox O2 Delivery O2 Flow Rate FiO2 01/07/17 11:33 36.7 85 18 109/66 93 Room Air 01/07/17 00:15 36.6 57 16 107/65 93 Nasal Cannula 1.00 01/06/17 20:00 Supplement Oxygen 01/06/17 20:00 36.7 59 17 103/62 94 Nasal Cannula 1.00 01/06/17 18:19 36.6 57 16 119/74 93 Nasal Cannula 3.00 01/06/17 15:30 Supplement Oxygen 01/06/17 15:29 37.0 65 16 100/58 90 Room Air Intake and Output 01/05/17 01/06/17 01/07/17 00:00 00:00 00:00 Intake Total 1457 ml Output Total 1700 ml Balance -243 ml Weight (Kilograms): 107.500 Height (Feet): 5 Height (Inches): 1.00 Test 01/06/17 10:25 01/06/17 11:40 01/06/17 11:45 01/06/17 15:51 C-Reactive Protein 1.6mg/dL (0.0-0.5) Lipase 13U/L (13-60) Procalcitonin 0.17ng/mL (0.00-0.08) Thyroid Stimulating Hormone (TSH) 5.220uIU/mL (0.450-4.500) Urine Legionella pneumophilia Ag Negative (Negative) Urine Color Straw (YELLOW) Urine Appearance Hazy (CLEAR,HAZY) Urine pH 6.5 (5.0-8.0) Urine Specific [place] 1.005 (1.003-1.035) Urine Protein Negativemg/dL (NEG,TRACE) Urine Glucose (UA) Negativemg/dL (NEGATIVE) Urine Ketones Negativemg/dL (NEGATIVE) Urine Occult Blood Large (NEGATIVE) Urine Nitrite Positive (NEGATIVE) Urine Bilirubin Negative (NEGATIVE) Urine Urobilinogen Normalmg/dL (NORMAL) Urine Leukocyte Esterase Small (NEGATIVE) Urine RBC 11-50/hpf (0-2) Urine WBC 6-10/hpf (0-5) Urine Epithelial Cells None/hpf (NONE-MOD) Urine Crystals None seen (NONE SEEN) Urine Bacteria Few/hpf (NONE-FEW) Urine Hyaline Casts None/lpf (NONE) Urine Granular Casts None seen (NONE SEEN) Urine Waxy Casts None seen (NONE SEEN) Urine Red Blood Cell Casts None seen (NONE SEEN) Urine White Blood Cell Casts None seen (NONE SEEN) Urine Mucus None seen (None Seen) Urine Trichomonas None seen (NONE SEEN) Urine Yeast None (NONE SEEN) Urinalysis Comment None Urine Culture Reflexed Indicated Test 01/06/17 16:34 01/07/17 06:03 Lactic Acid Level 1.5mmol/L (0.4-2.0) White Blood Count 8.0th/mm3 (3.8-10.1) Red Blood Count 4.66mil/mm3 (3.90-5.20) Hemoglobin 14.0g/dL (12.0-15.6) Hematocrit 44.2% (35.0-46.0) Mean Corpuscular Volume 94.8fL (81-100) Mean Corpuscular Hemoglobin 30.0pg (27.0-35.0) Mean Corpuscular Hemoglobin Concent 31.7% (32.0-37.0) Red Cell Distribution Width 15.4% (12.3-15.4) Platelet Count 201bil/L (150-400) Neutrophils (%) (Auto) 70.0% (40-74) Lymphocytes (%) (Auto) 16.3% (14-46) Monocytes (%) (Auto) 8.0% (4-12) Eosinophils (%) (Auto) 5.1% (0-5) Basophils (%) (Auto) 0.3% (0-3) Prothrombin Time 20.7sec (8.1-12.5) Prothromb Time International Ratio 1.91ratio Sodium Level 143mEq/L (134-144) Potassium Level 4.1mEq/L (3.5-5.2) Chloride Level 102mEq/L (97-108) Carbon Dioxide Level 28mmol/L (18-29) Blood Urea Nitrogen 15mg/dL (8-27) Creatinine 0.72mg/dL (0.57-1.00) Estimat Glomerular Filtration Rate 115mL/min (>59) Glucose Level 118mg/dL (60-99) Calcium Level 8.6mg/dL (8.5-10.1) Magnesium Level 1.7mg/dL (1.6-2.6) Total Bilirubin 0.4mg/dL (0.0-1.2) Aspartate Amino Transf (AST/SGOT) 29U/L (0-50) Alanine Aminotransferase (ALT/SGPT) 33U/L (0-32) Alkaline Phosphatase 125U/L (25-165) Total Protein 5.7g/dL (6.4-8.4) Albumin 3.0g/dL (3.4-5.0) Assessment/Plan Assessment/Plan Date Jan 07-Dec INR 1.79 1.91 INR change 0.12 Warf Dose 5mg 5MG Isac Grayson Pharm.D Jan 07, 2017 14:59
[2017-01-07 18:00] VITALS: BP 106/70; PULSE 80; RESP 16; O2SAT 92
[2017-01-07 19:54] VITALS: BP 111/62; PULSE 60; RESP 16; O2SAT 92
[2017-01-08 00:10] VITALS: BP 128/80; PULSE 72; RESP 16; O2SAT 98
[2017-01-08 06:57] LABS: INR 2.02 ratio
[2017-01-08] MEDS: Fluticasone 100 mCg Inhaler INHALATION SCH ×3 (08:30→19:59)
[2017-01-08] MEDS: Venlafaxine XR 75 mg ER24 Capsule PO SCH (08:38)
--- NOTE | 2017-01-08 09:23 | CONS ---
[address] [address] CONSULTATION REPORT PATIENT: JEY MONGE : 1945 MR#: [id number] ADMIT: 01/06/2017 JOB ID: [id number] DATE OF SERVICE: 01/08/2017 It was pleasure seeing the patient at [facility] for abdominal pain. HISTORY OF PRESENT ILLNESS: This is a 71-year-old lady with multiple medical history including DVT, PE, AFib on Coumadin, CAD, COPD, and ovarian cancer status post resection. She came to the emergency department with sudden onset of 1-day history of abdominal pain and diarrhea. She was being treated for pneumonia with Levaquin. However, she does have underlying pain syndrome due to fibromyalgia back pain, and she had a fractured leg. She takes hydromorphone at her rehab facility. She also informed me that she is getting Dilaudid as well over there in the care facility. She was in her usual state of health until yesterday. She had sudden onset of severe 10/10 abdominal pain sharp at the hernia sac. Nothing was making it better worse, and she had a lot of nausea without vomiting. Also, during this time, she started having diarrhea multiple episodes, but she did not see blood or melanotic substance. The pain did radiate to her back. However, it was reported that she was eating while she was having a lot of pain and also despite her having a lot of nausea. Because of these findings, a CT scan was done, which confirmed the presence of large ventral hernia which has significant amount of the colon, small intestines, and pancreas. Nothing obstructing was noted. She did not have any evidence of elevated INR, elevated white count, and fever. She was given Dilaudid in the ED. The pain continued this morning, but the pain started disappearing when she started having formed stools. She had formed stools earlier today, and her pain has disappeared since late morning. She does not have any abdominal pain at this point. It has completely resolved. Currently, she denies any nausea, vomiting, fever, chills, headaches, blurred vision, dizziness, lightheadedness, chest pain, shortness of breath, abdominal pain, blood in the stools, black stools, diarrhea, constipation. No skin rash or joint pain noted. She does have some back pain, and she also has baseline pain from her fibromyalgia, which she is getting Dilaudid here as well. PAST MEDICAL HISTORY: DVT, PE, ovarian cancer, fibromyalgia, femur fracture, AFib, large hernia, morbid obesity, asthma, COPD, and CAD. PAST SURGICAL HISTORY: [place] filter, triple bypass, hernia surgery x2, ovarian cancer surgery, cholecystectomy, hysterectomy, and tonsillectomy. SOCIAL HISTORY: Denies alcohol or drugs. She does smoke since she was 18 years old. FAMILY HISTORY: No colon cancer. CAD. MEDICATION: Include: 1. Tylenol. 2. Dilaudid. 3. Flagyl. 4. Neurontin. 5. Allopurinol. 6. Nicotine. 7. Levothyroxine. 8. Lasix. 9. Effexor. 10. Spironolactone. 11. Aspirin. 12. Famotidine. 13. Flovent. 14. Zinc. 15. Robaxin. 16. Lipitor. 17. Singulair. 18. Coumadin. 19. Nystatin. 20. Nitroglycerin. 21. MiraLAX. 22. Senna. 23. Zofran. 24. Maalox. PHYSICAL EXAMINATION: Patient is alert, oriented, does appear comfortable currently. Vitals include temp of 36.7, pulse 85, respiration 18, blood pressure 109/66. Head and neck: No icterus, no lymphadenopathy. Lungs clear. Cardiovascular regular rate and rhythm. Normal S1, S2. Negative S3. Cardiovascular irregular with normal S1, S2. Abdomen is soft. Some tenderness noted in the hernia sac, but no guarding, rebound, or firmness. Moderately distended. Obese abdomen with active bowel sounds. Extremities: No pitting edema of the ankles, but she does have ankle swelling. Skin shows no obvious jaundice. Radial pulses bilateral strong and intact. LABORATORY DATA: Hemoglobin 14, platelets of 201,000, white count of 8000. INR 1.91. Chemistry showing ALT of 33, AST 29, total bili 0.4. Total protein 5.7, albumin 3.0. CT scan as indicated above. Large ventral hernia with significant amount of bowels and pancreas. IMPRESSION AND PLAN: This is a 71-year-old lady with sudden onset of abdominal pain. The pain was localized in the hernia sac. This may indicate that she may have a transiently twisted bowel in the hernia sac. Currently pain is all gone. She does have some tenderness. She has no fever and no elevated white count. No guarding, rebound, or firmness. The pain is minimal. It only occurred with deeper palpation. I am concerned that bowels can be intermittently twisting on itself and untwisting. Since the pain is all gone, and abdominal tenderness is mild. I will recommend that the patient get an evaluation by the surgeon to see if eventual surgery is needed. From GI service, I cannot offer her anything at this point. ANALILIA
--- NOTE | 2017-01-08 09:25 | PCM.PHAPRO ---
Progress Abdominal pain with diarrhea WARFARIN DOSING PER PHARMACY [facility] cll RTM DFF Date Jan 07-Jan 08-Dec INR 1.79 1.91 2.02 INR change 0.12 0.11 Warf Dose 5mg 5MG 5 MG A/P -Therapeutic INR. No recent changes to labs. -Will continue with warfarin 5mg this evening. Ernst Serrano, PharmD Ernst Serrano Jan 08, 2017 09:25
[2017-01-08 10:19] VITALS: BP 110/65; PULSE 56; RESP 16; O2SAT 90
[2017-01-08 13:07] VITALS: BP 100/57; PULSE 58; RESP 16; O2SAT 91
[2017-01-08] MEDS ORDERED: HYDR4TAB PO (14:47)
--- NOTE | 2017-01-08 14:53 | PCM.DIMED ---
Discharge Instructions Date of Service Jan 08, 2017 Dates of Hospitalization Jan 06, 2017 at 13:35 Discharge Diagnosis Discharge Diagnosis # Acute abdominal pain. Present on admission. Resolved - Unclear etiology but suspected likely related to large ventral hernia # Suspected acute UTI, present on admission. Ruled out per ID consult and positive cultures felt to be likely due to chronic Cheema catheter and colonization. # Acute diarrhea suspicious for acute gastroenteritis vs C. Difficile diarrhea. Present on admission. Resolved. - Stool PCR was negative. # Chronic atrial fibrillation with chronic anticoagulation with Warfarin. Present on admission - Subtherapeutic INR on admission now therapeutic at 2.0 # Coronary artery disease. Present on admission. Presumed stable. # COPD/asthma. Present on admission. Stable. # Chronic Hypertension. Stable. # Fibromyalgia. Present on admission. Stable. # Hypothyroidism. Present on admission. - TSH elevated which could be acute reactive to presenting stress - Recommend further followup with primary care provider for consideration of repeat labs as outpatient # Tobacco dependence. Present on admission # GERD. Present on admission. Stable. # Depression. Present on admission. Stable. # Gout. Present on admission. Stable Diet Discharge Diet: Low fat, Low Sodium, Heart Healthy Activity Discharge Activity: Other (as tolerated and per physical therapy) Patient Instructions Follow-up plan 1. Followup with primary care provider in 3-7 days Follow-up Provider: Santi Blair Masoud Jan 08, 2017 14:53
--- NOTE | 2017-01-08 14:59 | PCM.DC.MED ---
Discharge Summary Date of Service Jan 08, 2017 Dates of Hospitalization Date of Hospital Admission Jan 06, 2017 at 13:35 Date of Discharge: Jan 08, 2017 Providers: Admitting Physician: Hermelindo Ramires Primary Care Physician: Santi Blair DO Attending Physician: Hermelindo Ramires Diagnosis at Time of Discharge Diagnosis at Time of Discharge # Acute abdominal pain. Present on admission. Resolved - Unclear etiology but suspected likely related to large ventral hernia # Suspected acute UTI, present on admission. Ruled out per ID consult and positive cultures felt to be likely due to chronic Cheema catheter and colonization. # Acute diarrhea suspicious for acute gastroenteritis vs C. Difficile diarrhea. Present on admission. Resolved. - Stool PCR was negative. # Chronic atrial fibrillation with chronic anticoagulation with Warfarin. Present on admission - Subtherapeutic INR on admission now therapeutic at 2.0 # Coronary artery disease. Present on admission. Presumed stable. # COPD/asthma. Present on admission. Stable. # Chronic Hypertension. Stable. # Fibromyalgia. Present on admission. Stable. # Hypothyroidism. Present on admission. - TSH elevated which could be acute reactive to presenting stress - Recommend further followup with primary care provider for consideration of repeat labs as outpatient # Tobacco dependence. Present on admission # GERD. Present on admission. Stable. # Depression. Present on admission. Stable. # Gout. Present on admission. Stable Consultations 1. GI 2. ID Procedures XRay, CTs & MRIs X-RAY CHEST ONE VIEW, PORTABLE IMPRESSION: Acute disease is not seen any semiupright portable chest. Cause of cough is not identified. Dictated by: Feliz Dougherty M.D. on 01/06/2017 CT ABDOMEN AND PELVIS WITH CONTRAST IMPRESSION: 1. Very prominent diastases rectus versus huge ventral hernia that involves the descending transverse and majority of the ascending colon, majority of small bowel and mesentery, most of the pancreas 2. 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 3. Inferior vena cava filter unchanged since previous study in the more peripheral aspect of the inferior vena cava just above the common iliac veins. Previous cholecystectomy. Dictated by: Feliz Dougherty M.D. on 01/06/2017 Brief History As noted in H&P by Dr. Portillo: Ms. Corral is a 71-year-old female with past medical history of current abdominal hernia, DVT/PE, atrial fibrillation on Coumadin, chronic indwelling catheter, CAD, COPD and ovarian cancer status post resection presented to the ED today secondary to intractable 10/10 abdominal pain with diarrhea 1 day. Patient states that she has recently been given antibiotic Levaquin for pneumonia approximately one week ago, had been feeling okay up until last night when she developed abdominal pain in her left and right lower quadrants with diarrhea and excessive flatulence throughout most of the night, she reports no blood in her diarrhea. This was accompanied with nausea without vomiting. She states the pain is 10/10 and radiating to her right flank and this pain will increase when laying down or when palpated, though she is able to sit up during interview and able to eat a double cheeseburger in ER room and was somewhat upset that it had no mayonnaise. Denies recent dietary change, or other sick contacts with similar symptoms. She states that she is also had some hematuria with clots which is not a altogether new symptom for her. She also states a mild nonproductive cough. She denies chest pain, headache, visual changes, shortness of breath or numbness or tingling in her extremities. She does state that she has bilateral buttock ulcers and a wound under her hernia/pannus which has been evaluated by wound care from the [facility] just prior to transportation to the ED. In the ED chest x-ray was clear, CT confirms very prominent diastasis rectus versus huge ventral hernia involving the descending transverse and majority of the descending colon, majority of small bowel mesentery and most of the pancreas. No obstruction or ischemic changes are identified at the origin of this. Mesenteric artery. Lab values unremarkable with the exception of mildly elevated liver enzymes and hyperglycemia. INR 1.79. Urine showed small leuk esterase, 6-10 WBC, positive nitrates, large occult blood, Culture pending. White count 8.0, temperature 36.5, pulse rate 62 respiratory rate 18 blood pressure 119/48. Dilaudid given in the ED with affect. Flagyl started. Hospital Course # Acute abdominal pain. Present on admission. Resolved. - Unclear etiology. ? if related to large ventral hernia vs other - GI consulted and impression is that abdominal pain likely due to transient "twisted" bowel within large ventral hernia. - By day of discharge patient reports complete resolution of her abdominal pain and requesting to be discharged back to her SNF [facility]. # Suspected acute UTI with Providencia Stuartii growing in urine culture, present on admission. - ID consulted and Dr. Muller does not think patient has true UTI and feels that the positive culture is due to indwelling Cheema cath which was last changed 2 days prior to admission - ID does not recommend any further antibiotic treatment at this time. # Acute diarrhea suspicious for acute gastroenteritis vs C. Difficile diarrhea. Present on admission. Resolved. - Stool PCR is negative # Chronic atrial fibrillation with chronic anticoagulation with Warfarin. Present on admission - Subtherapeutic INR on admission but now therapeutic - Continued Warfarin. Pharmacy to dose # Coronary artery disease. Present on admission. presumed stable. - Continued with home meds # COPD/asthma. Present on admission. Stable. - Continued home Qvar and Montelukast # Hypertension. Not present on admission. Presumed stable - Continued home furosemide, spironolactone # Fibromyalgia. Present on admission. Stable. - Continue home gabapentin - Continue home hydromorphone - Continue home methocarbamol # Hypothyroidism. Present on admission. - Continued home levothyroxine - TSH elevated but could be acute reactive to presenting stress - Repeat full panel and followup is recommended as outpatient. # Tobacco dependence. Present on admission - Nicotine patch # GERD. Present on admission. Stable. - Famotidine, twice a day # Depression. Present on admission. Stable. - Continued home venlafaxine # Gout. Present on admission. Stable - Continued home allopurinol Exam Vital Signs (Last) Date Time Temp Pulse Resp B/P Pulse Ox O2 Delivery O2 Flow Rate FiO2 01/08/17 13:07 36.7 58 16 100/57 91 Room Air 01/07/17 00:15 1.00 Exam Lungs: CTA bilat CV: RRR Abd: Soft, NT, ND, +BS Test 01/06/17 10:25 01/06/17 11:40 01/06/17 11:45 01/06/17 15:51 C-Reactive Protein 1.6mg/dL (0.0-0.5) Lipase 13U/L (13-60) Procalcitonin 0.17ng/mL (0.00-0.08) Thyroid Stimulating Hormone (TSH) 5.220uIU/mL (0.450-4.500) Urine Legionella pneumophilia Ag Negative (Negative) Urine Color Straw (YELLOW) Urine Appearance Hazy (CLEAR,HAZY) Urine pH 6.5 (5.0-8.0) Urine Specific Romeo 1.005 (1.003-1.035) Urine Protein Negativemg/dL (NEG,TRACE) Urine Glucose (UA) Negativemg/dL (NEGATIVE) Urine Ketones Negativemg/dL (NEGATIVE) Urine Occult Blood Large (NEGATIVE) Urine Nitrite Positive (NEGATIVE) Urine Bilirubin Negative (NEGATIVE) Urine Urobilinogen Normalmg/dL (NORMAL) Urine Leukocyte Esterase Small (NEGATIVE) Urine RBC 11-50/hpf (0-2) Urine WBC 6-10/hpf (0-5) Urine Epithelial Cells None/hpf (NONE-MOD) Urine Crystals None seen (NONE SEEN) Urine Bacteria Few/hpf (NONE-FEW) Urine Hyaline Casts None/lpf (NONE) Urine Granular Casts None seen (NONE SEEN) Urine Waxy Casts None seen (NONE SEEN) Urine Red Blood Cell Casts None seen (NONE SEEN) Urine White Blood Cell Casts None seen (NONE SEEN) Urine Mucus None seen (None Seen) Urine Trichomonas None seen (NONE SEEN) Urine Yeast None (NONE SEEN) Urinalysis Comment None Urine Culture Reflexed Indicated Hemoglobin A1c 6.9% (4.8-5.6) Test 01/06/17 16:34 01/07/17 06:03 01/08/17 06:05 Lactic Acid Level 1.5mmol/L (0.4-2.0) White Blood Count 8.0th/mm3 (3.8-10.1) Red Blood Count 4.66mil/mm3 (3.90-5.20) Hemoglobin 14.0g/dL (12.0-15.6) Hematocrit 44.2% (35.0-46.0) Mean Corpuscular Volume 94.8fL (81-100) Mean Corpuscular Hemoglobin 30.0pg (27.0-35.0) Mean Corpuscular Hemoglobin Concent 31.7% (32.0-37.0) Red Cell Distribution Width 15.4% (12.3-15.4) Platelet Count 201bil/L (150-400) Neutrophils (%) (Auto) 70.0% (40-74) Lymphocytes (%) (Auto) 16.3% (14-46) Monocytes (%) (Auto) 8.0% (4-12) Eosinophils (%) (Auto) 5.1% (0-5) Basophils (%) (Auto) 0.3% (0-3) Sodium Level 143mEq/L (134-144) Potassium Level 4.1mEq/L (3.5-5.2) Chloride Level 102mEq/L (97-108) Carbon Dioxide Level 28mmol/L (18-29) Blood Urea Nitrogen 15mg/dL (8-27) Creatinine 0.72mg/dL (0.57-1.00) Estimat Glomerular Filtration Rate 115mL/min (>59) Glucose Level 118mg/dL (60-99) Calcium Level 8.6mg/dL (8.5-10.1) Magnesium Level 1.7mg/dL (1.6-2.6) Total Bilirubin 0.4mg/dL (0.0-1.2) Aspartate Amino Transf (AST/SGOT) 29U/L (0-50) Alanine Aminotransferase (ALT/SGPT) 33U/L (0-32) Alkaline Phosphatase 125U/L (25-165) Total Protein 5.7g/dL (6.4-8.4) Albumin 3.0g/dL (3.4-5.0) Prothrombin Time 21.9sec (8.1-12.5) Prothromb Time International Ratio 2.02ratio Discharge Medications Discharge Medications Allopurinol (Allopurinol) 100 Mg Tablet 100 MG PO TID (Reported) Ascorbate Calcium (Vitamin C) 500 Mg Tablet 1,000 MG PO DAILY (Reported) Aspirin (Aspirin) 81 Mg Tablet 81 MG PO DAILY (Reported) Atorvastatin (Lipitor) 40 Mg Tablet 40 MG PO HS (Reported) Beclomethasone Dipropionate (Qvar) 8.7 Gm Aer.w.adap 1 PUFF INHALATION BID ( Reported) Calcium Carbonate (Calcium Carbonate) 200 Mg Tab.chew 200 MG PO BID (Reported) Calcium Carbonate/Vitamin D3 (Calcium 600 + Vit D 400 Softgl) 1 Each Capsule 1 EACH PO BID (Reported) Cetirizine (Cetirizine) 5 Mg Tablet 10 MG PO DAILY (Reported) Docusate Sodium (Docusate Sodium) 250 Mg Capsule 100 MG PO BID (Reported) Furosemide (Furosemide) 80 Mg Tab 80 MG PO DAILY (Reported) Gabapentin (Gabapentin) 600 Mg Tablet 600 MG PO TID (Reported) Hydromorphone (Hydromorphone) 4 Mg Tablet 4 MG PO Q4H Prescribed by: HERMELINDO RAMIRES MD Levothyroxine (Levothyroxine) 75 Mcg Tablet 75 MCG PO DAILY (Reported) Lutein (Lutein) 20 Mg Capsule 20 MG PO DAILY (Reported) Methocarbamol (Methocarbamol) 750 Mg Tablet 500 MG PO TID (Reported) Montelukast (Singulair) 10 Mg Tablet 10 MG PO HS (Reported) Multivitamin (Multivitamins) 1 Each Capsule 1 EACH PO DAILY (Reported) Nicotine 14 mg/24 hr Patch (Nicotine 14 mg/24 hr Patch) 1 Each Patch.td24 1 PATCH TRANSDERM DAILY (Reported) Omeprazole (Omeprazole) 20 Mg Capsule.dr 20 MG PO DAILY (Reported) Potassium Chloride ER (Potassium Chloride ER) 20 Meq Tablet.er 40 MEQ PO DAILY ( Reported) Sennosides (Senna) 8.6 Mg Tablet 8.6 MG PO BID (Reported) Spironolactone (Spironolactone) 25 Mg Tablet 50 MG PO DAILY (Reported) Venlafaxine ER (Venlafaxine ER) 75 Mg Tab.er.24 75 MG PO DAILY (Reported) Warfarin Sodium (Warfarin Sodium) 5 Mg Tablet 5 MG PO DAILY (Reported) As needed Acetaminophen (Acetaminophen) 500 Mg Tablet 500 MG PO Q6H PRN PRN For Fever ( Reported) Nitroglycerin SL (Nitroglycerin SL) 0.4 Mg Tab.subl 0.4 MG SL Q5MIN PRN PRN For Chest Pain (Reported) Polyethylene Glycol 3350 (Miralax) 17 Gm Powd.pack 17 GM PO DAILY PRN PRN For Constipation (Reported) Warfarin Sodium (Coumadin) 10 Mg Tablet 4 MG PO DAILY PRN PRN UD (Reported) Followup Plan Disposition: [facility] Follow-up plan 1. Followup with primary care provider in 3-7 days Discharge Diet: Low fat, Low Sodium, Heart Healthy Discharge Activity: Other (as tolerated and per physical therapy) Follow-up Provider: Santi Blair DO Time spent 35 min copies to: Santi Blair Masoud Jan 08, 2017 14:59
--- NOTE | 2017-01-08 15:10 | CONS ---
[address] [address] CONSULTATION REPORT PATIENT: JEY MONGE : 1945 MR#: [id number] ADMIT: 01/06/2017 JOB ID: [id number] DATE OF SERVICE: 01/08/2017 INFECTIOUS DISEASE CONSULTATION: I thank Dr. Gorman for this timely consult. REASON FOR CONSULT: Possible urinary tract infection (UTI) in a complex patient with abdominal pain. HISTORY OF PRESENT ILLNESS: The patient is a 71-year-old woman with an extraordinary past medical history who recently fell and fractured her left leg and has therefore been confined to one of the [facility]. Because she does not tolerate diapers or other appliances such as that, she has had a full indwelling Cheema. The patient was actually admitted just yesterday from the emergency department because of severe 10/10 abdominal pain. The patient had been receiving Levaquin for possible pneumonia at [facility], and then was feeling well until she developed the sudden onset of truly severe abdominal pain associated with cramps, loose bowel movements, and excessive flatulence. This was so severe that the patient literally could not stand. There was some associated nausea but no vomiting. with these symptoms. She specifically denies any fevers, chills, or sweats. Because of this, she was evaluated and of course admitted. During the course of her hospital stay it has been redemonstrated that she has a huge abdominal hernia and during the course of less than 48 hours here in the hospital the cramping, abdominal pain, and loose stools have basically completely and suddenly resolved. The physicians caring for the patient believe that this was likely related to the position of her large ventral hernia causing pain and possible beginnings of an obstruction, which has now spontaneously resolved. The ID question here is whether or not she might have a UTI. As part of her evaluation in the ED urinalysis and urine culture were performed and the urine is growing a very resistant gram-negative mark. She has been receiving ceftriaxone and the question is how much or which antibiotic she should continue to have receive. Note that the patient has not had any fevers, chills, or urinary symptoms, of course, as she has a Cheema catheter in place that has been there for some time now. PAST MEDICAL HISTORY: Extensive: 1. Massive abdominal hernia which is chronic. 2. History of ovarian cancer, thought to be cured. 3. 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 4. Chronic left femur fracture. 5. Organic heart disease. a. Coronary artery disease. b. Chronic AFIB. c. Chronic anticoagulation. 6. Chronic Cheema catheter problem. 7. Morbid obesity. 8. COPD. SOCIAL HISTORY: The patient is a current cigarette smoker, though not many cigarettes per day. In addition, she does not drink alcohol and currently lives in a SNF. FAMILY HISTORY: Positive for bowel infections in both her mother and her brother, who who from such a process, and also strong family history for coronary artery disease. REVIEW OF SYSTEMS: Was done. The patient has no significant headache at this point. No trouble swallowing or sore throat. She is mildly short of breath but no more so than baseline. No chest pain or shortness of breath reported. Her abdominal pain, cramping, and flatulence have completely resolved. She is no longer having frequent small loose bowel movements and instead had one large bowel movement last night. She still has a Cheema catheter in place, therefore has no dysuria or urgency of course. Her left lower extremity is chronically painful, especially around the femur. Remainder of the review of systems negative. PHYSICAL EXAMINATION: Reveals a morbidly obese woman in no acute distress. Her BMI is 45. Current temp 36.7, she has been afebrile through this hospital stay. Pulse 58, respiratory rate 16, blood pressure 100/57. She is saturating well on room air; 91% on room air. She is alert, lucid. Able to give a good history. She looks very tired but otherwise not depressed and her affect is normal. Eyes: Without conjunctivitis or scleral icterus. No temporal wasting. Oral cavity: No thrush or hairy leukoplakia. Neck: Reasonably supple, without adenopathy. Lungs: Fairly clear anteriorly bilaterally. Cardiac tones: This afternoon regular rate and rhythm. The abdomen is obese with a massive primarily left-sided hernia. The area of this large herniation is diffusely mildly tender but without signs of incarceration. No hepatosplenomegaly or ascites can be appreciated. She currently has a Hceema catheter. The extremities are notable for very pronounced and deeply pigmented venous stasis changes in both lower extremities. The left thigh is quite tender and the patient reports this is related to her fracture of the femur on the left side. She has reasonable motor strength, about 4/5, in both upper and lower extremities though of course she cannot walk because of her leg fracture. There is no evidence of synovitis. No significant new skin rash. LABORATORIES: Include white count 8000, normal diff. Creatinine 0.72. Albumin 3. Procalcitonin 0.17. Urinalysis: 6-10 white cells. Urine Legionella and pneumococcal antigens are negative. Stool multiplex PCR negative including C. diff PCR. Urine grew Providencia stuartii and this is highly resistant, including resistance to 1st and 2nd generation cephalosporins, quinolones, gentamicin, tobramycin, and nitrofurantoin. IMAGING: Includes a CT scan of the abdomen which shows a huge ventral hernia and a chest x-ray which is relatively clear, though perhaps some atelectasis in the right base, and that is my interpretation. The radiologists say basically clear lungs. IMPRESSION: I do not see any evidence for infection in this woman. She was admitted with what sounds like symptoms related to her huge ventral hernia, perhaps related to compression or near obstruction of the bowel, which have now resolved, and all of her presenting complaints have resolved. At no point was there anything to suggest she had a urinary tract infection. Having 6-10 white cells in the urine is perfectly normal for a woman over 60 and is likely in someone who has a Cheema catheter long-term. The factor urine grew an organism, albeit a highly resistant organism, is also not surprising. All patients with Cheema catheters for more than 10 days or so will have consistently positive urine cultures and this is of no significance. RECOMMENDATIONS: 1. I would DC all antibiotics. 2. The patient is cleared for transfer back to her skilled nurse facility from my point of view. 3. ID will go ahead and sign off at this time. 4. These findings communicated in person to Dr. Gorman at 2:30 this afternoon.
[2017-01-08 16:50] VITALS: BP 167/64; PULSE 61; RESP 24; O2SAT 94
--- NOTE | 2017-01-08 16:58 | PCM.PNMED ---
Subjective Date of Service Jan 08, 2017 Subjective Denies any new issues/complaints Exam Vital Signs Vital Sign - Last Date Time Temp Pulse Resp B/P Pulse Ox O2 Delivery O2 Flow Rate FiO2 01/08/17 13:07 36.7 58 16 100/57 91 Room Air 01/07/17 00:15 1.00 Intake and Output 01/07/17 01/07/17 01/08/17 Cumulative From/Thru 15:00 23:00 07:00 01/06/17 10:19 - 01/08/17 06:21 Intake Total 1234 ml 1716 ml 640 ml 5047 ml Output Total 600 ml 600 ml 1200 ml 4100 ml Balance 634 ml 1116 ml -560 ml 947 ml Intake Oral 1280 ml 640 ml 2280 ml IV Total 1234 ml 436 ml 2767 ml Output Urine Total 600 ml 600 ml 1200 ml 4100 ml # Bowel Movements 1 1 Exam General: Alert, Cooperative, No Acute Distress Head: Normal Eyes: Scleral Anicteric Nose: Mucous Membr Moist/[place] Mouth: Mucous Membr Moist/[place] Neck: Supple Chest & Lungs: Chest Wall Normal Cardiovascular: Regular Rate/Rhythm Abdomen: Non-tender, Non-distended, Normoactive bowel tones, Soft Genitalia: Normal (Cheema cath in place) Extremities: No cyanosis/clubbing/edema bilat Neurological: Grossly Neurologically Intact, Normal Speech Additional Information: Psych: Calm, appropriate IVs and Medications Medications Reviewed: Medications were reviewed in detail Lab and Diagnostics Result Diagram: 01/07/17 0601/07/17 0603 X-Rays, CTs and MRIs X-RAY CHEST ONE VIEW, PORTABLE IMPRESSION: Acute disease is not seen any semiupright portable chest. Cause of cough is not identified. Dictated by: Feliz Dougherty M.D. on 01/06/2017 CT ABDOMEN AND PELVIS WITH CONTRAST IMPRESSION: 1. Very prominent diastases rectus versus huge ventral hernia that involves the descending transverse and majority of the ascending colon, majority of small bowel and mesentery, most of the pancreas 2. 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 3. Inferior vena cava filter unchanged since previous study in the more peripheral aspect of the inferior vena cava just above the common iliac veins. Previous cholecystectomy. Dictated by: Feliz Dougherty M.D. on 01/06/2017 Assessment & Plan # Acute abdominal pain. Present on admission. Resolved. - Unclear etiology. ? if related to large ventral hernia vs other - GI consulted and impression is that abdominal pain likely due to transient "twisted" bowel within large ventral hernia. - Continue with supportive care # Suspected acute UTI with Providencia Stuartii growing in urine culture, present on admission. - ID consulted and Dr. Muller does not think patient has true UTI and feels that the positive culture is due to indwelling Cheema cath which was last changed 2 days prior to admission - ID does not recommend any further antibiotic treatment at this time. # Acute diarrhea suspicious for acute gastroenteritis vs C. Difficile diarrhea. Present on admission. Resolved. - Stool PCR is negative # Chronic atrial fibrillation with chronic anticoagulation with Warfarin. Present on admission - Subtherapeutic INR on admission but now therapeutic - Continued Warfarin. Pharmacy to dose # Coronary artery disease. Present on admission. presumed stable. - Continued with home meds # COPD/asthma. Present on admission. Stable. - Continued home Qvar and Montelukast # Hypertension. Not present on admission. Presumed stable - Continued home furosemide, spironolactone # Fibromyalgia. Present on admission. Stable. - Continue home gabapentin - Continue home hydromorphone - Continue home methocarbamol # Hypothyroidism. Present on admission. - Continued home levothyroxine - TSH elevated but could be acute reactive to presenting stress - Repeat full panel and followup is recommended as outpatient. # Tobacco dependence. Present on admission - Nicotine patch # GERD. Present on admission. Stable. - Famotidine, twice a day # Depression. Present on admission. Stable. - Continued home venlafaxine # Gout. Present on admission. Stable - Continued home allopurinol Dispo: Patient's d/c to SNF is cancelled today due to SNF apparently refusing patient's transfer. Will reattempt transfer in AM GI Prophylaxis: H2 lalita VTE Prophylaxis: Theraputic Anticoag with Warfarin (INR 1.79 on admit), SCDs Resuscitation Status: CPR: Attempt Resuscitation Hermelindo Gorman Jan 08, 2017 16:58
[2017-01-08 20:00] VITALS: BP 104/46; PULSE 53; RESP 19; O2SAT 98
[2017-01-08] MEDS ORDERED: Lidocaine 5% 35.5 Gm Ointment TOPICAL PRN (20:50)
[2017-01-08] MEDS: HYDROcodone-APAP 10-325 mg PO PRN (22:13)
[2017-01-09 04:26] VITALS: BP 123/75; PULSE 59; RESP 19; O2SAT 93
[2017-01-09] MEDS: HYDROcodone-APAP 10-325 mg PO PRN ×2 (06:08→09:20)
[2017-01-09 06:55] VITALS: BP 118/69; PULSE 60; RESP 18; O2SAT 94
[2017-01-09 07:42] LABS: INR 1.92 ratio
--- NOTE | 2017-01-09 08:07 | PCM.PHAPRO ---
Progress Requesting Provider: Tex George DO Abdominal pain with diarrhea INR today 1.92 Warfarin 5mg today. Pharmacy will continue to follow. Mabel Marie [facility] Jan 09, 2017 08:07
[2017-01-09] MEDS: Fluticasone 100 mCg Inhaler INHALATION SCH (09:19)
[2017-01-09] MEDS: Venlafaxine XR 75 mg ER24 Capsule PO SCH (09:22)
== END 2017-01-09 10:45 ==
LOC: SED 10:12 → EDBD 10:12 → EDUNIT# 10:12 → MOC 13:35
PROVIDERS: ADMIT Internal Medicine; ATTEND Internal Medicine
DX: R10.9 Unspecified abdominal pain (principal); R19.7 Diarrhea, unspecified; K43.2 Incisional hernia without obstruction or gangrene; I48.91 Unspecified atrial fibrillation; I25.10 Atherosclerotic heart disease of native coronary artery without angina pectoris; J44.9 Chronic obstructive pulmonary disease, unspecified; E03.9 Hypothyroidism, unspecified; M79.7 Fibromyalgia; I48.2 Chronic atrial fibrillation; E66.01 Morbid (severe) obesity due to excess calories; K21.9 Gastro-esophageal reflux disease without esophagitis; M10.9 Gout, unspecified; F17.210 Nicotine dependence, cigarettes, uncomplicated; Z98.61 Coronary angioplasty status; Z79.01 Long term (current) use of anticoagulants; Z86.718 Personal history of other venous thrombosis and embolism; Z86.711 Personal history of pulmonary embolism
CPT/HCPCS: 36415; 71010; 74177; 80053; 81000; 82274; 83036; 83605; 83690; 83735; 84145; 84443; 85025; 85610; 86140; 87077; 87086; 87088; 87186; 87449; 87507; 93005; 96361; 96365; 96375; 99285; G0378; J1170; J2405; J3490; J7030; Q9967